=== PATIENT | male | born 1965 ===

== ENCOUNTER 2022-04-15 08:28 | Outpatient (CLI) | payer OTHER ==
[2022-04-21] MEDS ORDERED: METFORMIN HCL500 M3 PO (10:37)
[2022-04-21] MEDS ORDERED: AMBIEN10 MG PO (10:37)
== END 2022-04-15 08:43 | disposition home or self-care (01) ==
LOC: LAB 08:28
PROVIDERS: ATTEND Surgery
DX: K64.8 Other hemorrhoids (principal); L29.0 Pruritus ani; I10 Essential (primary) hypertension

== ENCOUNTER 2022-05-06 10:23 | Outpatient (CLI) | payer OTHER ==
[~2022-05-06 10:23] MED LIST: AMBIEN10 MG PO; METFORMIN HCL500 M3 PO
== END 2022-05-06 10:28 | disposition home or self-care (01) ==
LOC: LAB 10:23
PROVIDERS: ATTEND Surgery
DX: Z03.818 Encounter for observation for suspected exposure to other biological agents ruled out (principal); Z20.822 Contact with and (suspected) exposure to COVID-19

== ENCOUNTER 2022-05-11 05:20 | Day surgery (SDC) | payer OTHER ==
[2022-05-11] MEDS ORDERED: DERMOPLAST PAIN78 GM TOP (08:40)
[2022-05-11] MEDS ORDERED: KETO10TA2 PO (08:40)
[2022-05-11] MEDS ORDERED: NEURONTIN300 MG PO (08:40)
[2022-05-11] MEDS ORDERED: PERCOCET 5-3251 EACH PO (08:40)
== END 2022-05-11 13:05 | disposition home or self-care (01) ==
LOC: CIR.AMB 05:20
PROVIDERS: ATTEND Surgery
DX: K64.3 Fourth degree hemorrhoids (principal); K64.8 Other hemorrhoids; L29.0 Pruritus ani; Z20.822 Contact with and (suspected) exposure to COVID-19; I10 Essential (primary) hypertension; E11.9 Type 2 diabetes mellitus without complications; Z79.4 Long term (current) use of insulin

== ENCOUNTER → 2023-02-23 08:23 | Outpatient (CLI) | payer OTHER ==
[~2023-02-23 08:23] MED LIST changes: +DERMOPLAST PAIN78 GM TOP; +KETO10TA2 PO; +NEURONTIN300 MG PO; +PERCOCET 5-3251 EACH PO
== END | disposition home or self-care (01) ==
LOC: LAB 08:23
PROVIDERS: ATTEND General Practice
DX: E11.65 Type 2 diabetes mellitus with hyperglycemia (principal); D62 Acute posthemorrhagic anemia; N39.0 Urinary tract infection, site not specified